=== PATIENT | male | born 1950 | race Caucasian/White ===

== ENCOUNTER → 2018-03-01 14:44 | Outpatient (CLI) | payer MEDICARE, BC ==
[2015-09-24 12:42] VITALS: BMI 26.6
[~2018-03-01 14:44] MED LIST: FLOMAX0.4 MG PO; LODINE XL400 MG PO; PERCOCET 10/3251 TA1 PO; PRILOSEC20 MG PO; ULTRAM50 MG PO; ZOCOR40 MG PO
== END | disposition home or self-care (01) ==
LOC: D.MRI 14:44
DX: R41.3 Other amnesia (principal)